=== PATIENT | male | born 1960 | race Asian ===

== ENCOUNTER 2017-06-16 18:12 | Inpatient (IN) | payer OTHER ==
[~2017-06-16] VITALS: Ht 165.1 cm; Wt 68.0 kg
[2017-06-16] MEDS ORDERED: SODIUM CHLORIDE 0.9% 1,000 ML IV ONE (18:39)
[2017-06-16 19:28] LABS: BASOPHILS % 0.3 % (0.0-2.0); EOSINOPHILS % 0.4 % (0.0-5.0); HEMATOCRIT. 45.6 % (42.0-52.0); HEMOGLOBIN. 15.4 g/dL (14.0-18.0); LYMPHOCYTES % 16.3 % (20.0-50.0); MEAN CORPUSCULAR HEMOGLOBIN 33.2 pg (28.0-32.0); MEAN CORPUSCULAR VOLUME 98.5 fL (80.0-94.0); MONOCYTES % 4.8 % (2.0-8.0); NEUTROPHILS % 78.2 % (40.0-76.0); PLATELET 253 x1000/uL (130-400); RED BLOOD CELL COUNT 4.63 mill/uL (4.7-6.1); RED CELL DISTRIBUTION WIDTH 16.6 % (11.6-14.6)
[2017-06-16 19:39] LABS: INR 1.2; PROTHROMBIN TIME 12.4 sec (9.4-11.6)
[2017-06-16 19:45] LABS: CARBON DIOXIDE 27 mEq/L (21-32); CHLORIDE 107 mEq/L (98-107); ETHANOL BLOOD < 10 mg/dL; TROPONIN I 0.03 ng/mL (0.00-0.04)
[2017-06-16] MEDS ORDERED: FUROSEMIDE 40MG/4ML VIAL IVP NR (20:00)
[2017-06-16] MEDS ORDERED: ASPIRIN 325MG TABLET PO ONE (20:00)
[2017-06-16] MEDS ORDERED: LORAZEPAM 2MG/ML CPJ IV PRN (20:15)
[2017-06-16] MEDS ORDERED: ONDANSETRON HCL 4MG/2ML VIAL IV PRN (20:15)
[2017-06-16] MEDS ORDERED: NITROGLYCERIN 0.4MG TABLET SL SL PRN (20:15)
[2017-06-16] MEDS ORDERED: KETOROLAC 15MG/ML VIAL IV PRN ×2 (20:15→21:30)
[2017-06-16] MEDS ORDERED: DIPHENHYDRAMINE 50MG/ML VIAL IV PRN (20:15)
[2017-06-16] MEDS ORDERED: IPRATROPIUM/ALBUTEROL 0.5-3(2.5)MG/3ML NEB INH PRN (20:15)
[2017-06-16] MEDS ORDERED: ACETAMINOPHEN 325MG TABLET PO PRN (20:15)
[2017-06-16] MEDS ORDERED: MAGNESIUM/ALUMINUM HYDROXIDE/SIMETHICONE 30ML UDC PO PRN (20:15)
[2017-06-16] MEDS ORDERED: GUAIFENESIN 200MG/10ML SUGAR FREE UDC PO PRN (20:15)
[2017-06-16] MEDS ORDERED: DOCUSATE SODIUM 100MG CAPSULE PO PRN (20:15)
[2017-06-16 20:25] LABS: AMMONIA < 10 uMol/L (<32)
[2017-06-16 20:56] LABS: CLARITY URINE CLEAR (CLEAR); COLOR URINE DARK YELLOW (YELLOW); GLUCOSE URINE NEGATIVE (NEGATIVE); KETONES URINE NEGATIVE (NEGATIVE); LEUKOCYTE ESTERASE URINE NEGATIVE (NEGATIVE); NITRITE URINE NEGATIVE (NEGATIVE); OCCULT BLOOD URINE NEGATIVE (NEGATIVE); PROTEIN URINE 2+ (NEGATIVE); SPECIFIC GRAVITY URINE 1.024 (1.005-1.030)
[2017-06-16] MEDS ORDERED: ZOLPIDEM TARTRATE 5MG TABLET PO PRN (21:00)
[2017-06-16] MEDS ORDERED: NA PHOS,M-B/NA PHOS,DI-BA ENEMA 118ML PR PRN (21:00)
[2017-06-16] MEDS: FAMOTIDINE 20MG/2ML VIAL IV SCH ×2 (21:00→21:50)
[2017-06-16 21:04] LABS: FOLIC ACID (FOLATE) SERUM 12.3 ng/mL (>5.38)
[2017-06-16 21:09] LABS: *AMPHETAMINES SCREEN URINE NEGATIVE (NEGATIVE); *BARBITURATES SCREEN URINE NEGATIVE (NEGATIVE); *BENZODIAZEPINES SCREEN URINE NEGATIVE (NEGATIVE); *COCAINE SCREEN URINE NEGATIVE (NEGATIVE); CANNABINOID URINE SCREEN NEGATIVE (NEGATIVE); METHADONE URINE SCREEN NEGATIVE (NEGATIVE); OPIATES URINE SCREEN NEGATIVE (NEGATIVE); PHENCYCLIDINE URINE SCREEN NEGATIVE (NEGATIVE)
[2017-06-16] MEDS: ENOXAPARIN 40MG/0.4ML SYR SUBCUT SCH ×2 (21:30→21:50)
[2017-06-16 21:40] VITALS: BP 157/115
[2017-06-16] MEDS: LISINOPRIL 20MG TABLET PO SCH ×2 (21:51→22:05)
[2017-06-16] MEDS: CLONIDINE 0.1MG TABLET PO PRN (22:05)
[2017-06-17] VITALS: BP 130/89
[2017-06-17 03:12] LABS: CREATINE KINASE MB FRACTION 1.6 ng/mL (0.5-3.6); TROPONIN I 0.02 ng/mL (0.00-0.04)
[2017-06-17 04:00] VITALS: BP 117/83
[2017-06-17 08:00] VITALS: BP 147/96
[2017-06-17] MEDS: LEVETIRACETAM 500MG TABLET PO SCH ×3 (09:00→21:26)
[2017-06-17] MEDS: FAMOTIDINE 20MG/2ML VIAL IV SCH ×2 (09:00→21:45)
[2017-06-17] MEDS: ASPIRIN 325MG EC TABLET PO SCH (09:37)
[2017-06-17] MEDS: LISINOPRIL 20MG TABLET PO SCH ×2 (09:38→21:26)
[2017-06-17 12:00] VITALS: BP 132/88
[2017-06-17 12:18] LABS: CREATINE KINASE 115 IU/L (39-308); CREATINE KINASE MB FRACTION 2.1 ng/mL (0.5-3.6); TROPONIN I < 0.02 ng/mL (0.00-0.04)
[2017-06-17 16:00] VITALS: BP 120/87
[2017-06-17 20:00] VITALS: BP 132/89
[2017-06-17] MEDS: ENOXAPARIN 40MG/0.4ML SYR SUBCUT SCH (21:26)
[2017-06-18] VITALS: BP 124/89
[2017-06-18 04:00] VITALS: BP 114/84
[2017-06-18 08:00] VITALS: BP 130/87
[2017-06-18] MEDS: LEVETIRACETAM 500MG TABLET PO SCH ×2 (08:34→20:17)
[2017-06-18] MEDS: ASPIRIN 325MG EC TABLET PO SCH (08:34)
[2017-06-18] MEDS: FAMOTIDINE 20MG/2ML VIAL IV SCH ×2 (08:34→20:16)
[2017-06-18] MEDS: LISINOPRIL 20MG TABLET PO SCH ×2 (08:35→20:18)
[2017-06-18 12:00] VITALS: BP 139/93
[2017-06-18 16:00] VITALS: BP 129/99
[2017-06-18 20:00] VITALS: BP 131/79
[2017-06-18] MEDS: ENOXAPARIN 40MG/0.4ML SYR SUBCUT SCH (20:18)
[2017-06-19] VITALS: BP 118/79
[2017-06-19 04:00] VITALS: BP 113/65
[2017-06-19 07:34] VITALS: BP 140/95
[2017-06-19] MEDS: LEVETIRACETAM 500MG TABLET PO SCH ×2 (08:38→20:56)
[2017-06-19] MEDS: LISINOPRIL 20MG TABLET PO SCH ×2 (08:39→21:00)
[2017-06-19] MEDS: ASPIRIN 325MG EC TABLET PO SCH (08:39)
[2017-06-19] MEDS: FAMOTIDINE 20MG/2ML VIAL IV SCH ×2 (08:39→20:56)
[2017-06-19 12:12] VITALS: BP 139/97
[2017-06-19 16:00] VITALS: BP 128/92
[2017-06-19 20:00] VITALS: BP 121/81
[2017-06-19] MEDS: ENOXAPARIN 40MG/0.4ML SYR SUBCUT SCH (21:00)
[2017-06-20] VITALS: BP 102/51
[2017-06-20 04:00] VITALS: BP 127/91
[2017-06-20 07:38] VITALS: BP 125/75
[2017-06-20] MEDS: LISINOPRIL 20MG TABLET PO SCH ×2 (08:39→20:47)
[2017-06-20] MEDS: LEVETIRACETAM 500MG TABLET PO SCH ×2 (08:39→20:47)
[2017-06-20] MEDS: ASPIRIN 325MG EC TABLET PO SCH (08:39)
[2017-06-20] MEDS: FAMOTIDINE 20MG/2ML VIAL IV SCH ×2 (08:39→20:47)
[2017-06-20 11:47] VITALS: BP 130/85
[2017-06-20 16:00] VITALS: BP 136/97
[2017-06-20] MEDS ORDERED: CARV6.2548 PO (16:19)
[2017-06-20] MEDS ORDERED: POTA10CA42 PO (16:19)
[2017-06-20] MEDS ORDERED: BENA20TA3 PO (16:19)
[2017-06-20] MEDS ORDERED: ATOR40TA70 PO (16:19)
[2017-06-20 20:00] VITALS: BP 123/71
[2017-06-20] MEDS: ENOXAPARIN 40MG/0.4ML SYR SUBCUT SCH (20:47)
[2017-06-21] VITALS: BP 132/86
[2017-06-21 03:46] VITALS: BP 138/83
[2017-06-21 04:00] VITALS: BP 146/96
[2017-06-21 07:56] VITALS: BP 154/109
[2017-06-21] MEDS: FAMOTIDINE 20MG/2ML VIAL IV SCH (08:16)
[2017-06-21] MEDS: LISINOPRIL 20MG TABLET PO SCH (08:16)
[2017-06-21] MEDS: LEVETIRACETAM 500MG TABLET PO SCH (08:17)
[2017-06-21] MEDS: ASPIRIN 325MG EC TABLET PO SCH (08:17)
[2017-06-21] MEDS: CLONIDINE 0.1MG TABLET PO PRN (08:25)
== END 2017-06-21 09:57 | disposition home or self-care (01) | DRG 45 ==
LOC: ER 18:12 → ENRESERV 19:37 → 8WST 19:58 → EDBEDREQTM 20:08 → EDBEDREQ 20:08
PROVIDERS: ADMIT Internal Medicine; ATTEND Internal Medicine
DX: I63.9 Cerebral infarction, unspecified (principal); I50.33 Acute on chronic diastolic (congestive) heart failure; G92 Toxic encephalopathy; E44.0 Moderate protein-calorie malnutrition; I11.0 Hypertensive heart disease with heart failure; I73.9 Peripheral vascular disease, unspecified; Z68.25 Body mass index [BMI] 25.0-25.9, adult
CPT/HCPCS: 36415; 70450; 71010; 80053; 80061; 80185; 80305; 81001; 82140; 82550; 82553; 82607; 82746; 83036; 83605; 83690; 83880; 84439; 84443; 84484; 85025; 85610; 87086; 93005; 93306; 93880; 93923; 99285; G0482; J1650; J1940; J3490; J7030

== ENCOUNTER 2017-07-11 09:46 | Emergency (ER) | payer OTHER ==
[~2017-07-11] VITALS: Ht 170.2 cm; Wt 65.0 kg
[~2017-07-11 09:46] MED LIST: ATOR40TA70 PO; BENA20TA3 PO; CARV6.2548 PO; POTA10CA42 PO
[2017-07-11] MEDS ORDERED: IPRATROPIUM BROMIDE (0.02%) 0.5MG/2.5ML NEB HHN STA (10:04)
[2017-07-11] MEDS ORDERED: PREDNISONE 20MG TABLET PO STA (10:04)
[2017-07-11] MEDS ORDERED: ALBUTEROL (0.083%) 2.5MG/3ML NEB HHN SCH (10:30)
[2017-07-11 15:18] VITALS: BP 160/97
== END 2017-07-11 15:22 | disposition left against medical advice (07) ==
LOC: ER 09:53
DX: F22 Delusional disorders (principal); R00.0 Tachycardia, unspecified; R06.2 Wheezing; F20.9 Schizophrenia, unspecified; F32.9 Major depressive disorder, single episode, unspecified; I11.0 Hypertensive heart disease with heart failure; I50.9 Heart failure, unspecified; Z86.73 Personal history of transient ischemic attack (TIA), and cerebral infarction without residual deficits
CPT/HCPCS: 71010; 99283; J7512; J7611

== ENCOUNTER 2017-07-14 15:55 | Emergency (ER) | payer OTHER ==
[~2017-07-14] VITALS: Ht 162.6 cm; Wt 52.0 kg
[2017-07-14 18:32] LABS: CLARITY URINE CLOUDY (CLEAR); COLOR URINE DARK YELLOW (YELLOW); KETONES URINE 1+ (NEGATIVE); LEUKOCYTE ESTERASE URINE NEGATIVE (NEGATIVE); NITRITE URINE NEGATIVE (NEGATIVE); OCCULT BLOOD URINE NEGATIVE (NEGATIVE); PROTEIN URINE 1+ (NEGATIVE); SPECIFIC GRAVITY URINE 1.027 (1.005-1.030)
[2017-07-14] MEDS ORDERED: CEFTRIAXONE SODIUM 1 G/VIAL IM ONE (22:30)
[2017-07-15 00:46] VITALS: BP 138/66
== END 2017-07-15 00:51 | disposition home or self-care (01) ==
LOC: ER 16:09
DX: J18.9 Pneumonia, unspecified organism (principal); J10.1 Influenza due to other identified influenza virus with other respiratory manifestations; F20.9 Schizophrenia, unspecified; F32.9 Major depressive disorder, single episode, unspecified; I11.9 Hypertensive heart disease without heart failure
CPT/HCPCS: 71010; 81001; 87804; 99285